=== PATIENT | female | born 1955 | race African-American/Black ===

== ENCOUNTER 2019-02-11 07:06 | Day surgery (SDC) | payer OTHER ==
[~2019-02-11 07:06] MED LIST: DESFLURANE 15 MIN; EPHEDrine SULFATE 50 MG/5 ML SYG
[2019-02-11] MEDS ORDERED: ACETAMINOPHEN 500 MG TAB (08:28)
[2019-02-11] MEDS: ACETAMINOPHEN 500 MG TAB PO (08:28)
[2019-02-11] MEDS ORDERED: PROPOFOL 40 ML (08:49)
[2019-02-11] MEDS ORDERED: MIDAZOLAM 1 MG/ML 2 ML INJ (08:49)
[2019-02-11] MEDS ORDERED: CEFAZOLIN 1 GM INJ (08:50)
[2019-02-11] MEDS ORDERED: FAMOTIDINE 20 MG INJ (08:50)
[2019-02-11] MEDS ORDERED: LIDOCAINE 2% (SDV) 5 ML INJ (08:50)
[2019-02-11] MEDS ORDERED: ONDANSETRON 4 MG INJ (08:50)
[2019-02-11] MEDS ORDERED: DEXAMETHASONE 4 MG/ML 5 ML INJ (08:50)
[2019-02-11] MEDS ORDERED: FENTAnyl 50 MCG/ML VIAL (08:50)
[2019-02-11] MEDS ORDERED: OXYCODONE/ACETAMINOPHEN (5/325) TAB PO ×2 (09:00)
[2019-02-11] MEDS ORDERED: DIPHENHYDRAMINE 50 MG INJ IV (09:00)
[2019-02-11] MEDS ORDERED: LABETALOL HCL 20MG INJ IV (09:00)
[2019-02-11] MEDS ORDERED: morphine (1 MG/ML) 10ML SYRINGE IV ×2 (09:00)
[2019-02-11] MEDS ORDERED: ALBUTEROL 0.083% (NEB) 2.5 MG/3 ML AMP HHN (09:00)
[2019-02-11] MEDS ORDERED: HYDROmorphONE 1 MG/5 ML IV SYRINGE IV (09:00)
[2019-02-11] MEDS ORDERED: FENTAnyl 50 MCG/ML VIAL IV ×2 (09:00)
[2019-02-11] MEDS ORDERED: KETOROLAC 30 MG INJ (09:49)
[2019-02-11] MEDS ORDERED: OXYTOCIN 10 UNIT INJ (10:27)
[2019-02-11] MEDS: ONDANSETRON 4 MG INJ IV (11:00)
[2019-02-11] MEDS: MEPERIDINE 25 MG INJ IV (11:00)
[2019-02-11] MEDS: HYDROmorphONE 1 MG/5 ML IV SYRINGE IV ×3 (11:06→11:21)
== END 2019-02-11 12:45 | disposition home or self-care (01) ==
LOC: SDS 07:06
DX: D25.9 Leiomyoma of uterus, unspecified (principal)
CPT/HCPCS: 58561; 86850; 86900; 86901; 86920; 88305; 93005